=== PATIENT | male | born 1940 | race Caucasian/White ===

== ENCOUNTER 2023-08-16 12:11 | Emergency (ER) | payer OTHER ==
[2023-08-16 12:59] VITALS: BP 137/61; PULSE 65; RESP 16; TEMP 98.1; BMI 26.6
== END 2023-08-16 13:18 | disposition home or self-care (01) ==
LOC: FER 12:11
DX: Z48.02 Encounter for removal of sutures (principal)
CPT/HCPCS: 99282-25